=== PATIENT | female | born 1950 | race Caucasian/White ===

== ENCOUNTER 2016-09-19 17:05 | Emergency (ER) | payer BC ==
[~2016-09-19] VITALS: Ht 165.1 cm; Wt 77.2 kg
[~2016-09-19 17:05] MED LIST: AZIT250T81 PO; BENZ-22 PO; CALC600T12 PO; GLIM4TAB PO; INDA2.5T2 PO; LACT1CAP8 PO; LIDOVISC MT; POTA20PA3 PO; PRED20TA PO; RANI150T15 PO; SITA100T PO; VITA150T PO
--- OUTSIDE RECORDS SUMMARY | 2016-09-19 17:09 | XMS REPORT | Continuity of Care Document ---
Author Author [facility] Address Unknown Phone Unavailable Allergies Active Description Code Type Severity Reaction Onset Reported/Identified Relationship to Patient Clinical Status Yes sulfamethoxazole [id number] Drug Allergy Moderate SEVERE STOMACH 07/20/2012 Yes trimethoprim [id number] Drug Allergy Moderate SEVERE STOMACH 07/20/2012 Yes amoxicillin trihydrate [id number] Drug Allergy Mild DIARRHEA 07/20/2012 Yes azithromycin [id number] Drug Allergy Mild DIARRHEA 07/20/2012 Yes cefaclor [id number] Drug Allergy Mild HIVES 07/20/2012 Yes dicyclomine HCl [id number] Drug Allergy Mild HIVES 07/20/2012 Yes doxycycline [id number] Drug Allergy Mild DIARRHEA 07/20/2012 Yes erythromycin base [id number] Drug Allergy Mild DIARRHEA 07/20/2012 Yes ibuprofen [id number] Drug Allergy Mild HIVES 07/20/2012 Yes dicyclomine [id number] Drug Allergy Unknown HIVES 07/20/2012 Yes nizatidine [id number] Drug Allergy Unknown HIVES 07/20/2012 Medications Problems Date Dx Coded Attending Type Code Diagnosis Diagnosed By 07/21/2012 Ot 250.00 07/21/2012 Ot 276.51 07/21/2012 Ot 558.9 07/10/2014 Ot V76.12 10/04/2014 Ot 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/2015 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 Ot J20.8 09/29/2015 MAGDIEL BARRETT MD Ot R19.7 DIARRHEA, UNSPECIFIED 10/08/2015 MAGDIEL BARRETT MD Ot R19.7 DIARRHEA, UNSPECIFIED 10/12/2015 MAGDIEL BARRETT MD Ot R19.7 DIARRHEA, UNSPECIFIED 12/04/2015 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 Ot J20.8 ACUTE BRONCHITIS DUE TO OTHER SPECIFIED 01/09/2016 Ot 465.9 ACUTE URI NOS 01/09/2016 Ot 599.0 URIN TRACT INFECTION NOS 05/19/2016 MYRIAM VIZCIANO Ot J02.8 ACUTE PHARYNGITIS DUE TO OTHER SPECIFIED 05/21/2016 MYRIAM VIZCAINO Ot I10 ESSENTIAL (PRIMARY) HYPERTENSION 05/21/2016 MYRIAM VIZCAINO Ot J01.00 ACUTE MAXILLARY SINUSITIS, UNSPECIFIED 05/21/2016 MYRIAM VIZCAINO Ot R05 COUGH 08/27/2016 MYRIAM VIZCAINO Ot I10 ESSENTIAL (PRIMARY) HYPERTENSION 08/27/2016 MYRIAM VIZCAINO Ot J01.00 ACUTE MAXILLARY SINUSITIS, UNSPECIFIED 08/27/2016 MYRIAM VIZCAINO Ot R05 COUGH Procedures Results Encounters ACCT No. Visit Date/Time Discharge Status Pt. Type Provider Facility Loc./Unit Complaint [id number] 07/10/2014 17:56:00 2014 23:59:59 [facility] Outpatient KOFI VALDEZ, [facility]
--- OUTSIDE RECORDS SUMMARY | 2016-09-19 17:10 | XMS REPORT | Continuity of Care Document ---
Author Author [facility] Address Unknown Phone Unavailable Allergies Active Description Code Type Severity Reaction Onset Reported/Identified Relationship to Patient Clinical Status Yes sulfamethoxazole [id number] Drug Allergy Moderate SEVERE STOMACH 07/20/2012 Yes trimethoprim [id number] Drug Allergy Moderate SEVERE STOMACH 07/20/2012 Yes amoxicillin trihydrate [id number] Drug Allergy Mild DIARRHEA 07/20/2012 Yes azithromycin [id number] Drug Allergy Mild DIARRHEA 07/20/2012 Yes cefaclor [id number] Drug Allergy Mild HIVES 07/20/2012 Yes dicyclomine HCl J428205316 Drug Allergy Mild HIVES 07/20/2012 Yes doxycycline [id number] Drug Allergy Mild DIARRHEA 07/20/2012 Yes erythromycin base [id number] Drug Allergy Mild DIARRHEA 07/20/2012 Yes ibuprofen M347578148 Drug Allergy Mild HIVES 07/20/2012 Yes dicyclomine K826938598 Drug Allergy Unknown HIVES 07/20/2012 Yes nizatidine [id number] Drug Allergy Unknown HIVES 07/20/2012 Medications Problems Date Dx Coded Attending Type Code Diagnosis Diagnosed By 07/21/2012 Ot 250.00 07/21/2012 Ot 276.51 07/21/2012 Ot 558.9 07/10/2014 Ot V76.12 10/04/2014 Ot 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 Type Provider Facility Loc./Unit Complaint [id number] 07/10/2014 17:56:00 2014 23:59:59 [facility] Outpatient KOFI VALDEZ, [facility]
[2016-09-19] MEDS ORDERED: ASPIRIN 81 MG CHEW (CHILDREN'S ASA) PO ONE (17:30)
[2016-09-19 17:57] LABS: BASOPHILS % (AUTO) 0 % (0-2); EOSINOPHILS # (AUTO) 0.2 10^3uL; EOSINOPHILS % (AUTO) 2 % (0-4); LYMPHOCYTES # (AUTO) 1.5 X10^3; MEAN CORPUSCULAR HEMOGLOBIN 28.2 PG (26.0-34.0); MEAN CORPUSCULAR HGB CONC 34.7 g/dL (31.0-37.0); MEAN CORPUSCULAR VOLUME 81 FL (80-100); MEAN PLATELET VOLUME 10.1 FL (6.0-9.5); MONOCYTES # (AUTO) 0.9 X10^3; MONOCYTES % (AUTO) 9 % (3-11); NEUTROPHILS # (AUTO) 6.6 X10^3; NEUTROPHILS % (AUTO) 72 % (51-67); PLATELET COUNT 306 10^3uL (150-450); WHITE BLOOD COUNT 9.17 10^3uL (4.0-11.0)
[2016-09-19 18:10] LABS: ALBUMIN 4.1 g/dL (3.4-5.0); ALKALINE PHOSPHATASE 73 U/L (38-126); ANION GAP 17.9 MEQ/L (3-15); BUN/CREATININE RATIO 22 (10-20); CALCULATED IONIZED CALCIUM 4.2 mg/dL (3.8-4.6); CREATINE KINASE 30 U/L (30-135); TOTAL PROTEIN 7.1 g/dL (6.4-8.5)
[2016-09-19] MEDS ORDERED: NITROGLYCERIN SUBLINGUAL 0.4 MG (NITROQUICK) TABLET SL ONE (18:11)
[2016-09-19] MEDS: NITROGLYCERIN SUBLINGUAL 0.4 MG (NITROQUICK) TABLET SL PRN ×2 (18:12→18:21)
[2016-09-19 19:11] VITALS: BP 128/56
[2016-09-19] MEDS ORDERED: DAPA5TAB PO (19:20)
[2016-09-19] MEDS ORDERED: MINO100C2 PO (19:20)
[2016-09-19] MEDS ORDERED: METF-474 PO (19:20)
--- NOTE | 2016-09-20 07:55 | Diagnostic Imaging Report ---
CHEST PA/LAT (2 VIEW)* Indication: Chest pain Comparison: None available. Findings: No focal pneumonic consolidation, pleural effusion or pneumothorax. Normal heart size and pulmonary vasculature. Impression: No acute cardiopulmonary process. Dictated by: Dictated on workstation # [id number]
== END 2016-09-19 19:10 | disposition home or self-care (01) ==
LOC: ED 17:06
DX: R07.89 Other chest pain (principal)
CPT/HCPCS: 36415; 71020; 80053; 82550; 82553; 83880; 84443; 84484; 85025; 85379; 85610; 93005; 93010; 99284